=== PATIENT | male | born 1995 | race Caucasian/White ===

== ENCOUNTER 2022-01-02 11:46 | Emergency (ER) | payer OTHER ==
[~2022-01-02] VITALS: Ht 170.2 cm; Wt 95.3 kg
[2022-01-02] MEDS ORDERED: BACI1TAB4 PO (11:55)
[2022-01-02] MEDS ORDERED: CVS1CHW13 PO (11:55)
[2022-01-02] MEDS ORDERED: ANUS25SU PR (14:32)
[2022-01-02] MEDS ORDERED: PROT1TAB2 PO (14:32)
[2022-01-02 14:43] VITALS: BP 136/67
== END 2022-01-02 14:45 | disposition home or self-care (01) ==
LOC: M ED 13:25
DX: K92.2 Gastrointestinal hemorrhage, unspecified (principal); Z88.0 Allergy status to penicillin; Z88.1 Allergy status to other antibiotic agents; Z88.2 Allergy status to sulfonamides; Z79.899 Other long term (current) drug therapy

== ENCOUNTER 2022-01-21 10:11 | Day surgery (SDC) | payer OTHER ==
[~2022-01-21] VITALS: Ht 167.6 cm; Wt 91.6 kg
[~2022-01-21 10:11] MED LIST: ANUS25SU PR; BACI1TAB4 PO; CVS1CHW13 PO; NS 1,000 ML IV ONE; PROT1TAB2 PO
[2022-01-21] MEDS ORDERED: propofoL 500 MG/50 ML VIAL As Ordered ONE (11:34)
[2022-01-21] MEDS ORDERED: LIDOCAINE 2% 100MG/5ML SDV (FOR ANES.) As Ordered ONE (11:34)
[2022-01-21] MEDS ORDERED: fentaNYL 100 MCG/2 ML INJECTION As Ordered ONE (11:35)
[2022-01-21 12:40] VITALS: BP 123/65
== END 2022-01-21 12:52 | disposition home or self-care (01) ==
LOC: M OPP 10:11 → EDUNIT# 11:45 → M OPP 12:52
PROVIDERS: ATTEND Internal Medicine Gastroenterology
DX: K62.5 Hemorrhage of anus and rectum (principal); K64.0 First degree hemorrhoids; R10.30 Lower abdominal pain, unspecified; R10.13 Epigastric pain; Z88.0 Allergy status to penicillin; Z88.2 Allergy status to sulfonamides; F17.220 Nicotine dependence, chewing tobacco, uncomplicated
CPT/HCPCS: 43235; 45378; J3010

== ENCOUNTER → 2022-06-09 | Outpatient (CLI) | payer OTHER ==
[~2022-06-09] MED LIST changes: -NS 1,000 ML IV ONE
== END ==
LOC: M PLAIMG 10:56
PROVIDERS: ATTEND Physician Assistant
DX: M25.541 Pain in joints of right hand (principal)

== ENCOUNTER → 2022-08-17 | Outpatient (CLI) | payer OTHER | LOC: M CARPUL 14:01 | PROVIDERS: ATTEND Physician Assistant | DX: R07.9 Chest pain, unspecified (principal) ==

== ENCOUNTER → 2022-11-18 | Outpatient (CLI) | payer OTHER ==
[~2022-11-18] MED LIST changes: +METHACHOLINE KIT INH ONE
== END ==
LOC: M CARPUL 07:51
PROVIDERS: ATTEND Physician Assistant
DX: R07.9 Chest pain, unspecified (principal)
CPT/HCPCS: 94070; J7674